=== PATIENT | male | born 1975 | race Caucasian/White ===

== ENCOUNTER 2022-01-03 22:19 | Outpatient (CLI) | payer OTHER, SELFPAY ==
[2022-01-03 09:10] LABS: Vitamin B12 299 pg/mL (193-986)
[2022-01-03 10:04] LABS: Vitamin D 25 Total 32.6 ng/mL (30-100)
== END 2022-01-03 22:20 | disposition home or self-care (01) ==
LOC: LBO 22:20
PROVIDERS: Visit Provider Family Medicine
DX: E53.8 Deficiency of other specified B group vitamins (principal); E55.9 Vitamin D deficiency, unspecified
CPT/HCPCS: 36415; 82306; 82607

== ENCOUNTER 2023-02-06 13:27 | Outpatient (CLI) | payer OTHER, SELFPAY ==
--- NOTE | 2023-02-06 12:45 | DI.RAD_ITS ---
Exam(s) XR ANKLE RT COMPLETE EXAM: XR ANKLE RT COMPLETE CLINICAL HISTORY: RIGHT ANKLE INJURY. TECHNIQUE: 2D digital imaging was performed of the right ankle. Four images were obtained. AP, lat eral and oblique views were obtained. COMPARISON: No exams were available for comparison FINDINGS: BONES: No acute fracture is present. No bony destructive lesion is seen. JOINTS: The ankle mortise is normally aligned. SOFT TISSUE: Normal. IMPRESSION: Unremarkable radiographs of the right ankle. DATA REPOSITORY: RADIATION DOSE DELIVERED:
== END 2023-02-06 13:28 | disposition home or self-care (01) ==
LOC: DIORS 13:28
PROVIDERS: Visit Provider Student in an Organized Health Care Education/Training Program
DX: S99.911A Unspecified injury of right ankle, initial encounter (principal)
CPT/HCPCS: 73610

== ENCOUNTER → 2023-05-01 00:59 | Outpatient (CLI) | payer OTHER, SELFPAY ==
--- NOTE | 2023-05-01 08:45 | DI.MRI_ITS ---
Exam(s) MR LOWER JOINT LT WO EXAM: MR LOWER JOINT LT WO CLINICAL HISTORY: pain, injury, LT ANKLE INSTABILITY, M25.372 TECHNIQUE: Multiplanar multisequence MRI was performed without intravenous contrast. COMPARISON: CR XR ANKLE RT COMPLETE from 02/06/2023 FINDINGS: BONES/JOINTS: No fracture or contusion pattern. Mild nonspecific edema is seen in the distal talus. T he talar dome is smooth. The ankle mortise is maintained. There is a small amount of fluid in the ank le joint. LIGAMENTS: The tibiofibular and calcaneofibular ligaments are intact. The talofibular ligaments are i ntact. The deltoid ligament is intact. The syndesmosis is unremarkable. Sinus tarsi is normal. MUSCULOTENDINOUS STRUCTURES: Achilles tendon: Unremarkable. Plantar fascia: Unremarkable. Anterior Extensor tendons: Unremarkable. Posterior Tibialis: Unremarkable. Flexor Digitorum longus: Unremarkable. Flexor Hallucis longus: Unremarkable. Peroneus longus: Unremarkable. Peroneus brevis:Unremarkable. SOFT TISSUES: There is an artifact seen at the plantar medial aspect of the foot (series [id number], image 7). OTHER FINDINGS: None. IMPRESSION: 1. No evidence of a ligament or tendon tear. 2. Small joint effusion. 3. Nonspecific edema in the distal talus. No fracture. 4. Artifact seen at the plantar medial aspect of the foot. This may represent a foreign body please c orrelate with physical exam. This may also be external to the patient. DATA REPOSITORY:
== END ==
PROVIDERS: Visit Provider Student in an Organized Health Care Education/Training Program
DX: M25.572 Pain in left ankle and joints of left foot
CPT/HCPCS: 73721

== ENCOUNTER 2023-06-12 01:08 | Outpatient (CLI) | payer OTHER, SELFPAY ==
[2023-06-12 10:17] LABS: Glucose 105 mg/dL (74-106); Vitamin B12 346 pg/mL (193-986)
== END 2023-06-12 01:09 | disposition home or self-care (01) ==
LOC: LBO 01:08
PROVIDERS: Visit Provider Family Medicine
DX: Z13.1 Encounter for screening for diabetes mellitus (principal); E55.9 Vitamin D deficiency, unspecified
CPT/HCPCS: 82306; 82947; 82607

== ENCOUNTER → 2023-08-14 00:36 | Outpatient (CLI) | payer OTHER, SELFPAY ==
--- NOTE | 2023-08-14 | DI.MRI_ITS ---
Exam(s) MR LOWER JOINT LT WO EXAM: MR LOWER JOINT LT WO CLINICAL HISTORY: CHRONIC PAIN LT KNEE, M25.562,G89.29,IMPAIRED FLEXION. TECHNIQUE: Multiplanar multisequence MRI was performed. COMPARISON: No exams were available for comparison FINDINGS: BONES: There is no fracture or contusion pattern. JOINTS: Hyperintense signal is seen in the articular cartilage over low lying the patella. There is mild edema in the subchondral bone. There is a small joint effusion. TENDONS: Extensor mechanism: Unremarkable. Medial retinaculum: Unremarkable. Lateral retinaculum: Unremarkable. Popliteus: Unremarkable. MUSCLES: Unremarkable. MENISCI: There is intermediate signal seen in the posterior horn of the medial meniscus suggesting de generation. The lateral meniscus is unremarkable. SOFT TISSUES: Unremarkable. LIGAMENTS: Anterior Cruciate: Unremarkable. Posterior Cruciate: Unremarkable. Medial Collateral:Unremarkable. Lateral Collateral: Unremarkable. OTHER: IMPRESSION: 1. Osteochondral injury seen in the patella. 2. Degenerative changes seen in the posterior horn of the medial meniscus. 3. No evidence of a ligament tear. DATA REPOSITORY:
== END ==
PROVIDERS: Visit Provider Nurse Practitioner
DX: M17.12 Unilateral primary osteoarthritis, left knee (principal)
CPT/HCPCS: 73721

== ENCOUNTER → 2023-08-20 01:56 | Outpatient (CLI) | payer OTHER, SELFPAY ==
--- NOTE | 2023-08-20 07:45 | DI.MRI_ITS ---
Exam(s) MR UPPER JOINT LT WO EXAM: MR UPPER JOINT LT WO CLINICAL HISTORY: ? RTC TEAR,DISLOCATION LT SHOULDER,S43.005A TECHNIQUE: Multiplanar multisequence MRI of the shoulder was performed. COMPARISON: CR,DOC,XR XR SHOULDER 2V OR MORE LT from 08/15/2023 FINDINGS: MARROW:There is a small Hill-Sachs impaction fracture of the posterolateral aspect of the humeral hea d. Probable subacute appearance. There is also intraosseous edema in the anterior inferior osseous glenoid. There is a moderate size glenohumeral joint effusion with some synovial thickening anterior ly. ROTATOR CUFF MECHANISM: AC JOINT/ACROMIUM: AC joint appears intact. Benign bone island noted in the a chromium.. There is no evidence of os acromiale. Supraspinatus: Some tendinitis signal but no full-thickness tear. No fluid in the subacromial bursa. Infraspinatus: Intact. No evidence of tear nor muscle atrophy. Teres Minor: Intact. No evidence of tear nor muscle atrophy. Subscapularis/anterior cuff: Intact. No abnormal signal at the level of the multipennate insertional fibers. No significant tear nor atrophy. BICEPS TENDON: Not displaced from the intertubercular groove. No tear evident. There is, however, signal abnormality more anteriorly in the short head biceps muscle and tendon imme diately subjacent to the coracoid process. The coracoid process is not fractured nor edematous. LABRUM/LABRAL LIGAMENTOUS COMPLEX: Mild increased signal in superior labrum posterior to the biceps a ttachment site but no prominent SLAP tear. There is complex tearing of the anterior labrum extending inferiorly and there appears to be some periosteal stripping off the scapula at this level. There i s also signal abnormality at the level of the attachment of the inferior glenohumeral ligament to the inferior glenoid consistent with significant tearing at this level, probably high-grade partial tear ing. There does not appear to be joint fluid extending caudal to the inferior recess. Glenoid attac hment of the IGL is intact. GLENOHUMERAL JOINT: Moderate size joint effusion. Some debris noted anteriorly and synovial thickeni ng. No degenerative subarticular cysts. IMPRESSION: 1. Findings are consistent with sequelae of recent anteroinferior glenohumeral joint dislocation with Hill-Sachs impaction fracture deformity on the posterolateral humeral head and labral ligamentous Ba nkart lesion injury anteriorly. 2. There is high-grade partial tearing of the glenoid attachment site of the inferior glenohumeral li gament. Issue Kim attachment site is intact. 3. There is no tear of the long head biceps tendon but there is significant muscle signal abnormality in the short head biceps muscle immediately subjacent to the coracoid process attachment. 4. Moderate size glenohumeral joint effusion with some posttraumatic synovitis and mild debris. No obvious bone fragments. 5. Some tendinitis signal in the most anterior aspect of the supraspinatus but no full-thickness rot ator cuff tendon tear. DATA REPOSITORY:
--- NOTE | 2023-08-20 12:23 | DI.VRAD_ITS ---
PROCEDURE INFORMATION: Exam: MR Left Upper Extremity Joint Without Contrast; Shoulder Exam date and time: 08/20/2023 11:08 AM Age: 48 years old Clinical indication: Pain and injury or trauma; Shoulder; Left; Injury details: Recent fall and dislocation TECHNIQUE: Imaging protocol: Magnetic resonance imaging of the left upper extremity without contrast. Exam focused on the shoulder. COMPARISON: CR XR SHOULDER 2V OR MORE LT 08/15/2023 7:45 PM FINDINGS: Bones/joints: Small Hill-Sachs impaction fracture deformity of the humeral head with a small concave fracture and associated reactive edema. Moderate glenohumeral effusion with mild synovitis and debris. Glenoid labrum: Complex tear of the anterior glenoid labrum and posteroinferior labrum extending from approximately the 12 o'clock position to the 7 o'clock position. Supraspinatus tendon: Minimal bursal surface tendinopathy of the supraspinatus tendon. Infraspinatus tendon: Unremarkable. No evidence of tear. Subscapularis tendon: Unremarkable. No evidence of tear. Teres minor tendon: Unremarkable. No evidence of tear. Tendon of biceps brachii: Unremarkable. No evidence of tear. Glenohumeral ligaments: Marked thickening and heterogeneous appearance with increased T2 signal of the inferior glenohumeral ligament near its glenoid attachment, consistent with a least high-grade partial tear or full-thickness tear. Soft tissues: Diffuse edema in the subscapularis muscle. Edema in the short head of the biceps. IMPRESSION: 1. Sequelae of recent anteroinferior glenohumeral dislocation with Hill-Sachs impaction fracture deformity and complex labroligamentous Bankart injury 2. Progression of tearing of the anterior labrum through the posteroinferior labrum 3. Tearing of the glenoid attachment of the inferior glenohumeral ligament 4. Minimal bursal surface supraspinatus tendinopathy 5. Large glenohumeral effusion with mild synovitis and debris 6. Anterior muscular edema Dictated and Authenticated by: Carol Hoyos MD. Ordering:LIDIA Westbrook MD
== END ==
PROVIDERS: Visit Provider Student in an Organized Health Care Education/Training Program
DX: S43.005S Unspecified dislocation of left shoulder joint, sequela (principal); S42.292S Other displaced fracture of upper end of left humerus, sequela; S43.432A Superior glenoid labrum lesion of left shoulder, initial encounter; X58.XXXA Exposure to other specified factors, initial encounter
CPT/HCPCS: 73221

== ENCOUNTER 2024-02-06 06:56 | Day surgery (SDC) | payer OTHER, SELFPAY ==
--- NOTE | 2024-02-05 20:20 | W.PM.DSUDISC ---
Date of service: 02/06/24 Time of Service: 08:43 Discharge Plan Disposition Patient Disposition: Home Condition: Good Discharge Details Reason For Visit: screening colonoscopy Attending Provider: Georges Brownlee Primary Care Provider: Eileen,Local Home Meds and New Rx's Prescriptions: No Action No Known Home Meds Discharge Instructions Instructions: Colorectal Polyps (GEN) Additional Instructions: Rajendra, we were able to complete the colonoscopy today without any issues. He did great. Your prep was excellent. I did find 2 polyps. One was about 0.5 cm, the other was less than 0.25 cm. Neither one of them have any features that are worrisome to the naked eye. These will be sent off for the pathologist to review, once we know the nature of the polyps, I can offer a better recommendation regarding the timing of your next colonoscopy. If you have any questions at all, or need anything at any point, please do not hesitate to call. My cell is [phone] 1. If tolerated, consume a soft, low fiber diet for 1-2 days. 2. Do not drive, drink alcohol, operate machinery, make critical decisions, or do activities that require coordination or balance for 24 hours. 3. Because air was put into your colon during the procedure, expelling air from your rectum (passing gas or farting) is normal. 4. You may not have a bowel movement for 1-3 days because of the colonoscopy prep. This is normal. 5. Go directly to the emergency room if you notice any of the following: Develop chills (warm to touch), or if you have a thermometer and your temperature is above 101 Difficulty breathing or difficultly swallowing Persistent vomiting Severe abdominal pain, other than gas cramps Severe chest pain Black, tarry stools Any bleeding ? exceeding one tablespoon 6. Call your physician if the site where your intravenous was started becomes red, swollen, painful, and warm to touch. 7. Your physician has reviewed your pre-procedure medications. Please continue to take those medications as previously ordered. You will be given specific information/education regarding any changes to your medications before leaving. Activity:: Activity as Tolerated Diet:: As Tolerated Discharge Orders Discharge Orders: Discharge Order (Routine); Ordered 02/05/24 Ordered By: Georges Brownlee DS: Diagnosis Discharge Diagnosis (1) Encounter for screening colonoscopy: Status: Acute Asessment and Plan: Follow-up on polyp results
--- NOTE | 2024-02-05 20:21 | W.COLOREPORT ---
Date of service: 02/06/24 Time of Service: 08:45 Colonoscopy Report Date of procedure: 02/06/24 Pre-op diagnosis general: screening colonoscopy Post-op diagnosis procedure note: other (Colon polyps) Procedure: colonoscopy with polypectomy Surgeon: Georges Brownlee Anesthesia Type: General:No Airway Estimated blood loss (mL): 5 Pathology: other (0.5 cm polyp at 120 cm, 0.25 cm polyp at 30 cm) Complications: None Disposition: same day Indications: Lion is a 49 year old man who needs his first screening colonoscopy Prep: Miralax/Dulcolax Procedure Start Time: 08:16 Procedure End Time: 08:36 Retraction Time: 10 Findings: 0.5 cm polyp at 120 cm, 0.25 cm polyp at 30 cm Procedure Description: After the induction of anesthesia, and with the patient in left lateral decubitus position, I began by performing an external anorectal exam.? Perineum and skin were normal, as was the anal verge.? There was no evidence of external hemorrhoids.? Next, I performed a digital rectal exam.? I did not appreciate any abnormal findings.? Next, I advanced a colonoscope into the rectal vault.? I performed retroflexion.? This appeared normal.? Using insufflation, I then advanced the colonoscope beyond the rectal folds and into the sigmoid colon before advancing towards the cecum.? The quality of the prep was outstanding.? The scope was noted to be in the cecum by identification of the ileocecal valve and appendiceal orifice.? I then began withdrawing the colonoscope using repeated irrigation as necessary for full evaluation of the colonic mucosa. Narrowband imaging was used to assist with analysis around 120 cm from the anus, within the ascending colon was a 0.5 cm polyp. This was removed with cold forceps without any issue. The polyp was mostly flat. Similarly, another 0.25 cm flat polyp was discovered at 30 cm. This was also removed with cold forceps without any difficulty. Once the scope was withdrawn to the level of the rectum, great care was taken to examine portions of the rectal folds.? Finally, the scope was withdrawn and the patient was brought to the same-day surgery recovery unit as the anesthetic wore off. ?The findings and instructions were shared with the patient prior to discharge. [place] Bowel Prep [place] Bowel Prep Right Colon: 3 Left Colon: 3 Transverse Colon: 3 Total Score: 9
[2024-02-06 07:08] VITALS: BP 118/82; PULSE 56; RESP 16; TEMP 36.4; O2SAT 99
[2024-02-06] MEDS: Lactated Ringers 1,000 ML 80 ML IV (07:12)
[2024-02-06 08:00] VITALS: BMI 23.9
--- NOTE | 2024-02-06 08:00 | W.ANESPRE ---
General Info Date of Service Date Performed: 02/06/24 Height: 6 ft 1 in Weight: 82.3 kg Body Mass Index (BMI): 23.9 Surgical Procedure: Operation Date: 02/06/24 08:35 Proposed Procedure Side Surgeon p Jett Brownlee MD Meds Allergies and Home Medications Allergies Allergy/AdvReac Type Severity Reaction Status Date / Time erythromycin base AdvReac Diarrhea Verified 02/06/24 07:07 Home Medication Medication Instructions Recorded Unknown [No Known Home Meds] 02/06/23 Current Visit Medications: Current Medications Generic Name Dose Route Start Last Admin Trade Name Freq PRN Reason Stop Dose Admin Hyoscyamine Sulfate 0.125 mg 02/05/24 20:22 Hyoscyamine 0.125 Mg Sl/Oral/Chew SL 03/06/24 20:21 DIRECTED PRN Ringer's Solution 1,000 mls @ 80 mls/hr 02/06/24 06:00 02/06/24 07:12 IV 02/06/24 23:59 80 mls/hr INFUSION DELICIA Administration IV Miscellaneous Supplies 1 each 02/06/24 06:00 Iv Access IV 02/06/24 23:59 DIRECTED DELICIA Ondansetron HCl 4 mg 02/05/24 20:22 Ondansetron 4 Mg/2 Ml Vial IVP 03/06/24 20:21 Q4H PRN PRN Nausea / Vomiting Sodium Chloride 0 ml 02/06/24 06:00 Normal Saline Flush 10 Ml Syr IV 02/06/24 23:59 PRN PRN Sodium Chloride 0 ml 02/06/24 06:00 Normal Saline 10 Ml Vial IJ 02/06/24 23:59 DIRECTED PRN Sterile Water 0 ml 02/06/24 06:00 Water,Injection,Sterile 10 Ml Vial IJ 02/06/24 23:59 DIRECTED PRN PFSH Active Problems Active Problems: Problem Status Onset Code Encounter for screening colonoscopy Z12.11 Dislocation of left shoulder joint 08/15/23 S43.005A Left ankle pain M25.572 Left ankle instability M25.372 Surgical History Surgical History Hx of appendectomy Hx of repair of rotator cuff Tobacco Smoking/Tobacco Use Status: Never Alcohol Alcohol Intake: current Alcohol intake frequency: holidays/special occasions only Alcohol type: beer Substance Use Substance use: Never Substance use type: does not use Vital Signs and Lab Results Vital Signs Most Recent Vital Signs in EMR: Most Recent Vital Signs Temp Pulse Resp BP Pulse Ox 36.4 C L 56 L 16 118/82 99 02/06/24 07:08 02/06/24 07:08 02/06/24 07:08 02/06/24 07:08 02/06/24 07:08 Lab Results Blood Type / Crossmatch: No Data to Display Complete Blood Count: No Data to Display Complete Metabolic Panel: No Data to Display Liver Function Panel: No Data to Display Coagulation Panel: No Data to Display Cardiac Panel: No Data to Display Arterial Blood Gas: No Data to Display Venous Blood Gas: No Data to Display Pancreas Panel: No Data to Display Thyroid Panel: No Data to Display Infectious Disease: No Data to Display Blood Cultures: No Data to Display Toxicology Panel: No Data to Display Anesthesia Assessment and Plan Anesthesia History Personal History: No History of Anesthesia Complications Family History: No Family History of Anesthesia Complications Exercise Tolerance Exercise Tolerance: Metabolic Equivalents>4 Pertinent Negatives Pertinent Negatives: No Symptoms of GERD Cardiac & Pulmonary Exam Cardiac Exam: Normal S1/S2 Heart Sounds Pulmonary Exam: Clear Bilateral Breath Sounds Implantable Cardiac Device Does patient have a Pacemaker or an ICD?: No Airway Exam Known Difficult Airway: No Mallampati Class: 1 Mouth Opening: Normal (> 3cm) Thyromental Distance: Greater than 3 cm Neck Range of Motion: Full ROM Neck Circumference: Normal Teeth Condition: Normal Dentition ASA Classification ASA Score: ASA 1 Emergency Case?: No NPO Status NPO Status: NPO Clears >2 hours, Solids >8 hours Anesthesia Plan Resuscitation Status: Full Code Anesthesia Technique: General Anesthesia Airway Planned: Natural Airway Monitors Used: Standard Monitors
--- NOTE | 2024-02-06 08:30 | BOWEL_PTH ---
PATIENT: Lion Delgadillo V LOC: [facility] U#:[id number] AGE/SX: 49/M ROOM: RE02/06/[address]: Georges Brownlee MD : 1975 BED: DIS: 02/06/2024 SPEC #: [id number] RECD: 02/06/24 10:15 STATUS: MOSES REQ #: [id number] TK: 02/06/24 08:[address]: Georges Brownlee DEPT: Surgical Specimen RECD BY: Erica Vail ENTERED: 02/06/24 10:16 SP TYPE: Bowel OTHR DR: No Local Tissues: 1 - BIOPSY BOWEL 2 - BIOPSY BOWEL Procedures: GROSS AND MICRO LEVEL 4 Comments: [id number]
[2024-02-06 08:42] VITALS: BP 113/71; PULSE 62; RESP 16; TEMP 36.3; O2SAT 94
--- NOTE | 2024-02-06 08:49 | W.ANESPOSTOP ---
Postoperative Evaluation Date, Time and Location Date Performed: 02/06/24 Time Performed: 08:49 Patient Location: Day Surgery Unit Vital Signs Most Recent Imported Vital Signs: Most Recent Vital Signs Temp Pulse Resp BP Pulse Ox 36.3 C L 62 16 113/71 94 02/06/24 08:42 02/06/24 08:42 02/06/24 08:42 02/06/24 08:42 02/06/24 08:42 Pain Score Most Recent Pain Score: Most Recent Pain Score Pain Level 0 02/06/24 08:42 Assessment Mental Status: Awake (Alert & Oriented to Patient Baseline) Airway and Respiratory Function: Patent airway with normal (patient baseline) respiratory exam Cardiovascular Function: Hemodynamically Stable Hydration Status: Adequately Hydrated Nausea & Vomiting: No Nausea or Vomiting Pain: Pt. Denies Any Pain Peripheral Nerve Block: Patient did not receive a nerve block
[2024-02-06 09:12] VITALS: BP 113/71; PULSE 62; RESP 16; TEMP 36.4; O2SAT 94
== END 2024-02-06 09:30 | disposition home or self-care (01) ==
LOC: SUR 06:57
PROVIDERS: Visit Provider Surgery
PROC: 0DJD8ZZ Inspection of Lower Intestinal Tract, Via Natural or Artificial Opening Endoscopic (ICD-10-PCS; CPT 45378; principal; 2024-02-06 08:30)
DX: Z12.11 Encounter for screening for malignant neoplasm of colon (principal); D12.3 Benign neoplasm of transverse colon
CPT/HCPCS: 45380; 88305; J2001; J2704

== ENCOUNTER 2024-09-23 03:53 | Outpatient (CLI) | payer OTHER, SELFPAY ==
[2024-09-23 08:39] LABS: ALT 38 U/L (16-63); Calculated LDL 71 mg/dL (<100); Cholesterol 162 mg/dL (<200); HDL Cholesterol 86 mg/dL (40-60); Triglyceride 26 mg/dL (<150); Vitamin D 25 Total 55.2 ng/mL (30-100)
[2024-09-23 09:03] LABS: Creatine Kinase 122 U/L (39-308)
[2024-09-25 14:49] LABS: Apolipoprotein A1, S 172 mg/dL (>=120); Apolipoprotein B, S 72 mg/dL (See Comment); Apolipoprotein B/A 1 ratio 0.4 (See Comment)
[2024-10-05 17:02] LABS: Testosterone, Free 9.82 ng/dL (4.06-15.6); Testosterone, Total 451 ng/dL (240-950)
== END 2024-09-23 03:54 | disposition home or self-care (01) ==
PROVIDERS: Visit Provider Preventive Medicine Occupational Medicine
DX: Z79.899 Other long term (current) drug therapy (principal); R53.83 Other fatigue; E78.9 Disorder of lipoprotein metabolism, unspecified; E55.9 Vitamin D deficiency, unspecified
CPT/HCPCS: 36415; 80061; 82172; 82306; 82550; 84402; 84403; 84460

== ENCOUNTER 2024-12-08 02:03 | Outpatient (CLI) | payer OTHER, SELFPAY ==
[2024-12-08 10:20] LABS: ALT 56 U/L (16-63); CREATININE 0.9 mg/dL (0.70-1.30); Cholesterol 141 mg/dL (<200); HDL Cholesterol 78 mg/dL (>or=40); Vitamin D 25 Total 70 ng/mL (30-100)
[2024-12-08 10:23] LABS: Triglyceride <25 mg/dL (<150)
[2024-12-08 10:53] LABS: LDL CHOLESTEROL 56 mg/dL (<100)
[2024-12-10 12:11] LABS: Lipoprotein (a) 371 nmol/L (<75)
[2024-12-12 12:37] LABS: Apolipoprotein A1, S 164 mg/dL (>=120); Apolipoprotein B, S 65 mg/dL (See Comment); Apolipoprotein B/A 1 ratio 0.4 (See Comment)
[2024-12-15 17:54] LABS: Specimen WB Whole Blood
== END 2024-12-08 02:04 | disposition home or self-care (01) ==
LOC: LBO 02:03
PROVIDERS: Visit Provider Preventive Medicine Occupational Medicine
DX: E78.9 Disorder of lipoprotein metabolism, unspecified (principal); Z79.899 Other long term (current) drug therapy; E55.9 Vitamin D deficiency, unspecified
CPT/HCPCS: 36415; 80061; 81401; 82172; 82306; 83695; 83721; 82565; 84460

== ENCOUNTER 2025-02-23 13:07 | Outpatient (CLI) | payer OTHER, SELFPAY ==
--- NOTE | 2025-02-23 11:30 | DI.RAD_ITS ---
Exam(s) XR SHOULDER RT COMPLETE 2+V EXAM: XR SHOULDER RT COMPLETE 2+V CLINICAL HISTORY: RIGHT SHOULDER PAIN. TECHNIQUE: 2D digital imaging was performed. Two views. COMPARISON: CR,DOC,XR XR SHOULDER 2V OR MORE LT from 08/15/2023 MR MR UPPER JOINT LT WO from 08/20/2023 FINDINGS: BONES: No acute fracture is present. No bony destructive lesion is seen. Mild spurring at the superior humeral head. He JOINTS: No dislocation present. Mild narrowing of the glenohumeral joint space. There is spurring at the margin of the humeral head is well as at the glenoid. There is some superior subluxation of the humeral head with respect to the glenoid. SOFT TISSUE: Normal. IMPRESSION: Moderate degenerative changes of the glenohumeral joint. DATA REPOSITORY: RADIATION DOSE DELIVERED:
== END 2025-02-23 13:08 | disposition home or self-care (01) ==
LOC: DIORS 13:07
PROVIDERS: Visit Provider Student in an Organized Health Care Education/Training Program
DX: M25.511 Pain in right shoulder (principal); M19.011 Primary osteoarthritis, right shoulder
CPT/HCPCS: 73030

== ENCOUNTER 2025-03-16 01:43 | Outpatient (CLI) | payer OTHER, SELFPAY ==
--- NOTE | 2025-03-16 07:30 | DI.MRI_ITS ---
Exam(s) MR UPPER JOINT RT WO EXAM: MR UPPER JOINT RT WO CLINICAL HISTORY: R SHOULDER PAIN,arthritis rt glenohumeral joint,m19.011 TECHNIQUE: Multiplanar multisequence MRI of the shoulder was performed. COMPARISON: MR MR UPPER JOINT LT WO from 08/20/2023 CR XR SHOULDER RT COMPLETE 2+V from 02/23/2025 FINDINGS: MARROW:There is no evidence of fracture, Hill-Sachs deformity, nor ominous osseous lesions. There are some degenerative subarticular cysts in the superior aspect of the humeral head with mild surrounding bone edema GLENOHUMERAL JOINT: There degenerative changes with thinning of articular cartilage and a adorno-type osteophyte on the inferior articular surface of the humeral head. There is evidence of prior labral surgery at the osseous glenoid.. There is no prominent joint effusion. No obvious loose intra-articular bodies. ROTATOR CUFF MECHANISM: AC JOINT/ACROMIUM: Mild degenerative changes in the AC joint.. There is no evidence of os acromiale. Supraspinatus: Mild tendinitis. No high-grade tear. No atrophy. Infraspinatus: Mild tendinitis. No high-grade tear. No atrophy. There are degenerative subarticular cysts in the humeral head subjacent to the infraspinatus insertion. Teres Minor: Intact. No evidence of tear nor muscle atrophy. Subscapularis/anterior cuff: Some tendinitis signal. No high-grade tear. No atrophy. BICEPS TENDON: Exhibits normal position within the intertubercular groove. No evidence of tear. LABRUM: There is no abnormal signal in the superior labrum posterior to the biceps insertion. However, there is some signal abnormality in the posterior labrum consistent with an element of tearing. There are 2 securing device is in the anterior osseous glenoid. Probably related to prior Bankart repair. There is, however, some irregularity of the anterior labrum noted probably consistent with tearing. The inferior labrum appears intact anteriorly. The inferior glenohumeral ligament appears intact. There is some deficiency of the anterior inferior labrum. IMPRESSION: 1. There is evidence of prior probable Bankart-type injury repair. There is presently no intraosseous edema. 2. There are moderate osteoarthritic degenerative changes in the glenohumeral joint. 3. There is some mild rotator cuff tendinitis signal but no evidence of full- thickness rotator cuff tear, retraction, nor muscle atrophy. There is irregularity of the posterior labrum and anterior labrum consistent with probable tearing. DATA REPOSITORY:
== END 2025-03-16 02:03 ==
PROVIDERS: PCP Family Medicine; Visit Provider Student in an Organized Health Care Education/Training Program
DX: M19.011 Primary osteoarthritis, right shoulder (principal)
CPT/HCPCS: 73221

== ENCOUNTER 2025-03-30 04:00 | Outpatient (CLI) | payer OTHER, SELFPAY ==
[2025-03-30 08:43] LABS: Hemoglobin A1C 5.3 % (<5.7)
[2025-03-30 09:05] LABS: ALT 53 U/L (16-63); Calculated LDL 53 mg/dL (<100); Cholesterol 138 mg/dL (<200); HDL Cholesterol 80 mg/dL (>or=40); Triglyceride 26 mg/dL (<150); Vitamin D 25 Total 54 ng/mL (30-100)
[2025-04-02 12:28] LABS: Apolipoprotein A1, S 167 mg/dL (>=120); Apolipoprotein B, S 65 mg/dL (See Comment); Apolipoprotein B/A 1 ratio 0.4 (See Comment)
== END 2025-03-30 04:01 | disposition home or self-care (01) ==
LOC: LBO 04:00
PROVIDERS: PCP Family Medicine; Visit Provider Preventive Medicine Occupational Medicine
DX: E78.41 Elevated Lipoprotein(a) (principal); E78.9 Disorder of lipoprotein metabolism, unspecified; Z79.899 Other long term (current) drug therapy; E55.9 Vitamin D deficiency, unspecified; R73.9 Hyperglycemia, unspecified
CPT/HCPCS: 36415; 80061; 82172; 82306; 83090; 83036; 84460